=== PATIENT | female | born 1995 | race African-American/Black ===

== ENCOUNTER 2022-11-21 07:18 | Day surgery (SDC) | payer OTHER ==
[2022-11-12 16:48] VITALS: BMI 30.9
[2022-11-21] MEDS ORDERED: oxyCODONE HCL 5 MG TABLET PO PRN ×2 (07:25)
[2022-11-21] MEDS ORDERED: ONDANSETRON 4 MG/2 ML VIAL IVPUSH PRN (07:25)
[2022-11-21] MEDS ORDERED: ACETAMINOPHEN 325 MG TABLET (FP) PO PRN (07:25)
[2022-11-21] MEDS ORDERED: BUPIVACAINE HCL/PF 2.5 MG/ML - 30 ML VIAL IJ ONE (07:28)
[2022-11-21] MEDS ORDERED: LACTATED RINGERS SOLUTION 1,000 ML IV SCH (07:30)
[2022-11-21] MEDS ORDERED: MIDAZOLAM HCL 2 MG/2 ML SINGLE DOSE VIAL ONE ×2 (08:30→08:33)
[2022-11-21] MEDS ORDERED: ACETAMINOPHEN INJECTION 100 ML IVPB ONE (08:30)
[2022-11-21] MEDS ORDERED: PROPOFOL 20 ML ONE ×2 (08:33→09:17)
[2022-11-21] MEDS ORDERED: ONDANSETRON 4 MG/2 ML VIAL ONE ×2 (08:46→10:56)
[2022-11-21] MEDS ORDERED: DEXAMETHASONE SOD PHOSPHATE 4 MG/1 ML VIAL ONE (08:46)
[2022-11-21] MEDS ORDERED: KETOROLAC TROMETHAMINE 30 MG/1 ML VIAL ONE (08:46)
[2022-11-21] MEDS ORDERED: FENTANYL CITRATE/PF 50 MCG/ML VIAL ONE ×3 (10:53→11:35)
[2022-11-21 12:42] VITALS: TEMP 97.5
[2022-11-21 15:42] VITALS: BP 124/70; PULSE 76; RESP 18
== END 2022-11-21 14:05 | disposition home or self-care (01) ==
LOC: FASU 07:18
PROVIDERS: ATTEND Orthopaedic Surgery Sports Medicine
PROC: 0LX Tendons, Transfer (ICD-10-PCS; principal; 2022-11-21 09:01)
PROC: 0MNN0ZZ Release Right Knee Bursa and Ligament, Open Approach (ICD-10-PCS; 2022-11-21 09:01)
DX: M25.361 Other instability, right knee (principal); M22.2X1 Patellofemoral disorders, right knee
CPT/HCPCS: 73564-TC-RT-FY; 81025; 94760; C1713